=== PATIENT | female | born 1980 ===

== ENCOUNTER 2018-06-27 09:29 | Outpatient (CLI) | payer OTHER | END 2018-06-27 09:31 | disposition home or self-care (01) | LOC: SONO 607 09:29 | DX: E04.1 Nontoxic single thyroid nodule (principal) ==

== ENCOUNTER 2023-11-25 05:26 | Day surgery (SDC) | payer OTHER ==
[2023-11-23 11:41] LABS: PH,URINE 6.5 (5.0-8.0); URINE APPEARANCE Cloudy; URINE BILIRRUBIN Negative (NEGATIVE); URINE BLOOD Negative; URINE COLOR Dark Yellow; URINE GLUCOSE Negative (NEGATIVE); URINE LEUKOCYTE Negative; URINE NITRATE Positive; URINE PROTEIN Trace (NEGATIVE)
[2023-11-23 11:41] LABS: HEMATOCRIT 36.6 % (36.0-45.00); HEMOGLOBIN 12.5 g/dL (12.0-15.00); MEAN CELL VOLUME 94.5 fL (80.00-100.00); MEAN CORPUSCULAR HEMOGLOBIN 32.3 pg (27.00-32.0); MEAN CORPUSCULAR HGB CONC 34.2 g/dl (32.0-36.0); PLATELET COUNT 293 K/uL (150-450); RED BLOOD COUNT 3.87 M/uL (4.00-6.00); RED CELL DISTRIBUTION WIDTH 12.8 % (11.5-14.5)
[2023-11-23 11:45] LABS: URINE RBC 10.9 uL (0.0-20.8); URINE WBC 34.1 uL (0.0-23.2)
[2023-11-23 11:53] LABS: URINE BACTERIA > 9821.5 uL (0.0-1933)
[2023-11-23 12:13] LABS: INR 1.02; PARTIAL THROMBOPLASTIN TIME 26.9 SECONDS (22.0-34.0)
[2023-11-23 12:18] LABS: PROTHROMBIN TIME 10.7 SECONDS (9.0-11.5)
[2023-11-23 12:31] LABS: BILIRUBIN TOTAL 0.36 mg/dL (0.3-1.2); CALCIUM 9.5 mg/dL (8.5-10.1); CREATININE SERUM 0.49 mg/dL (0.55-1.02); GFR 138.5; GLOBULINA 3.3 G/DL (2.4-3.5); POTASSIUM 4.38 mEq/L (3.5-5.1); TOTAL PROTEIN 7.3 gm/dL (6.4-8.2)
[~2023-11-25] VITALS: Ht 152.4 cm; Wt 81.6 kg
[~2023-11-25 05:26] MED LIST: SYNTHROID75 MCG PO
[2023-11-25] MEDS ORDERED: DEXAMETHASONE SODIUM PHOSPHATE 4 MG/ML VIAL ONE (07:21)
== END 2023-11-25 12:05 | disposition home or self-care (01) ==
LOC: CIR.AMB 05:26
PROVIDERS: ATTEND Surgery
DX: C73 Malignant neoplasm of thyroid gland (principal); E04.2 Nontoxic multinodular goiter